=== PATIENT | male | born 1975 | race Asian ===

== ENCOUNTER 2024-02-07 09:16 | Emergency (ER) | payer OTHER ==
[~2024-02-07] VITALS: Ht 172.7 cm; Wt 95.3 kg
[2024-02-07 09:21] VITALS: BP 126/87; PULSE 75; RESP 18; TEMP 97.1; O2SAT 98
[2024-02-07 10:22] LABS: BILIRUBIN,URINE 1+ (NEGATIVE); BLOOD, URINE 3+ (NEGATIVE); LEUKOCYTE ESTERASE ,URINE NEGATIVE (NEGATIVE); NITRITE, URINE NEGATIVE (NEGATIVE); PROTEIN,URINE 1+ (NEGATIVE); UGLUCOSE NEGATIVE (NEGATIVE); UROBILINOGEN,URINE 0.2 EU/dL (0.2 - 1)
[2024-02-07 10:25] LABS: APPEARANCE,URINE SLIGHTLY CLOUDY (CLEAR); COLOR,URINE ORANGE (YELLOW)
[2024-02-07 10:32] LABS: BACTERIA,URINE 10-30 (MOD) /HPF (None Seen); ICTOTEST NEGATIVE (NEGATIVE); RBC,URINE TOO NUMEROUS TO COUN /HPF (0-5); SQUAMOUS EPITHELIAL CELL,UR 0-3 (FEW) /LPF (0-3 (FEW)); WBC,URINE 0-5 /HPF (0-5)
[2024-02-07 11:12] LABS: BASOPHILS # (AUTO) 0.1 K/uL (0.00-0.22); BASOPHILS % (AUTO) 1.1 % (0.0-2.0); EOSINOPHILS # (AUTO) 0.2 K/uL (0-0.4); EOSINOPHILS % (AUTO) 4.1 % (0.0-4.0); HEMATOCRIT 46.1 % (36-52); HEMOGLOBIN 16.1 g/dL (12.0-18.0); LYMPHOCYTES # (AUTO) 1.2 K/uL (2.0-11.5); LYMPHOCYTES % (AUTO) 25.4 % (20.5-51.1); MEAN CORPUSCULAR HEMOGLOBIN 31 pg (27-31); MEAN CORPUSCULAR HGB CONC 35 g/dL (33-37); MEAN CORPUSCULAR VOLUME 89.2 fL (80-94); MONOCYTES # (AUTO) 0.5 K/uL (0.8-1.0); MONOCYTES % (AUTO) 9.9 % (1.7-9.3); NEUTROPHILS # (AUTO) 2.7 K/uL (1.8-7.7); NEUTROPHILS % (AUTO) 59.5 % (42.2-75.2); PLATELET COUNT (AUTO) 260 K/uL (140-450); RED BLOOD CELL COUNT(AUTO) 5.17 MIL/uL (4.20-6.10); RED CELL DISTRIBUTION WIDTH 13.4 % (11.6-13.7); WHITE BLOOD COUNT (AUTO) 4.6 K/uL (4.8-10.8)
[2024-02-07 11:27] LABS: ANION GAP 12.5 (8-16); CALCIUM 9.8 mg/dL (8.5-10.1); CARBON DIOXIDE 27.2 mmol/L (21-32); POTASSIUM 3.7 mmol/L (3.5-5.1)
[2024-02-07 11:28] VITALS: O2SAT 99
[2024-02-07 11:34] LABS: ALBUMIN 4.3 g/dL (3.4-5.0); BILIRUBIN,DIRECT 0.1 mg/dL (0.0-0.3); TOTAL BILIRUBIN 0.6 mg/dL (0.0-1.0)
[2024-02-07] MEDS ORDERED: cefTRIAXone 1,000 MG VIAL ONE (12:45)
[2024-02-07] MEDS ORDERED: LIDOCAINE MPF 1% 5 ML ONE (12:45)
[2024-02-07] MEDS: cefTRIAXone 1,000 MG in LIDOCAINE MPF 1% 2.1 ML IM ONE (12:48)
[2024-02-07] MEDS: KETOROLAC 60 MG/2 ML VIAL IM ONE (12:51)
[2024-02-07 13:35] VITALS: BP 126/87; PULSE 75; RESP 18; TEMP 97.1; O2SAT 99
[2024-02-07] MEDS ORDERED: KETO10TA2 PO (13:45)
[2024-02-07] MEDS ORDERED: CIPR500T4 PO (13:46)
[2024-02-07] MEDS ORDERED: TAMS0.4C96 PO (13:46)
== END 2024-02-07 13:51 | disposition home or self-care (01) ==
LOC: MED 09:16
DX: N23 Unspecified renal colic (principal); Z79.1 Long term (current) use of non-steroidal anti-inflammatories (NSAID); Z79.2 Long term (current) use of antibiotics
CPT/HCPCS: 36415; 74176; 80048; 80076; 81001; 83690; 85025; 87086; 87491; 96372; 99285; J0696; J1885; J2001